=== PATIENT | female | born 1960 | race Caucasian/White ===

== ENCOUNTER 2022-12-26 08:00 | Outpatient (RCR) | payer OTHER, SELFPAY ==
--- NOTE | 2022-11-14 14:57 | PTOPEVAL1 ---
Assessment and note entered by Estrella Pederson, PT Evaluation Information Assessment Status Evaluation Diagnosis bilateral carpal tunnel Onset couple months Subjective Information Had this years ago, wore wrist guards and would go away. Reports recently wakes up w/ her hands being numb. Would have flare ups, would wear her wrist guards and would go away. Woke up with nerve pain up left arm that was worsening, went to ER to r/o heart attack Passed out when got to ER. Got a gabapentin, prednisone x 5 days. Has worn wrist brace 06/05 since episode. Left hand is keyboard hand and right is wrist hand . Ordered ergonomic gel and this seems to have helped. 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 Reported Pain Level Pain Score 0,0: Self Report Assessment PT Clinical Summary Pt presents w/ hx of bilat carpal tunnel symptoms over multiple years. Reports will have flare ups which resolve with wearing her braces a few weeks. Has had more frequent flare ups in recent years and most recently had such a severe flare up on left arm the went to the ER. Demo's decreased AROM of wrist/elbow with increased soft tissue density /adhesions and tone at rest. Pt will benefit from therapy to address deficits, reduce pain, and improve ADLs to return to PLOF. Plan of Care Interventions Electrical Stimulation,Hot Pack/Cold Pack,Manual Therapy,Paraffin Bath,Therapeutic Activities, Therapeutic Exercise,Ultrasound,Other Other Interventions Taping PT Services Indicated Yes Treatment Frequency and 1-2x weekly x 6 weeks Duration These treatments will address the objective and functional deficits as defined above. The patient will be advanced safely and appropriately in order for the patient to progress towards his/her prior level of function. Additional exercises will be introduced and as well as a comprehensive home exercise program upon discharge, if needed, ?to ensure carryover of functional gains achieved in the clinic. This treatment plan has been reviewed and agreement upon by the patient.
--- NOTE | 2022-12-26 08:55 | PTOPDC ---
Assessment and note entered by Estrella Pederson, PT Assessment Status Discharge Diagnosis bilateral carpal tunnel Onset couple months Subjective Information Hasn't had to wear braces during the day. Has still been wearing brace on left hand at night. Tried to go without braces last two nights but woke up with tingling in fingers. Is a little achy today. Feels ~75% improved. Reports is worried that prior episode didn't have any day time symptoms just woke up with extreme pain. 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 Has modified this to minimize discomfort. Reported Pain Level Pain Score 0,0: Self Report Assessment PT Clinical Summary Pt reports feeling ~ 75% improved overall. Is still wearing her left brace at night, but does not have to wear bracing on either wrist during the day or at work. Highest level of discomfort in left wrist rated at 3/10 and with right wrist at 1/10 both of which are not frequent. Pt has up to date home program to maintain ROM and flexibility, has been educated on progression independently as well. Pt is pleased with her progress, has met most of her goals set by therapist. Thus patient is being discharged from therapy services.
== END 2022-12-26 09:44 | disposition home or self-care (01) ==
LOC: ANHHIPT 08:00
PROVIDERS: PCP Family Medicine; Visit Provider Family Medicine
DX: G56.03 Carpal tunnel syndrome, bilateral upper limbs (principal)
CPT/HCPCS: 97014; 97035; 97110; 97140; 97161; G0283

== ENCOUNTER 2024-05-04 15:00 | Outpatient (RCR) | payer MEDICARE, OTHER, SELFPAY ==
--- NOTE | 2024-03-24 14:02 | PTOPPROG ---
Assessment and note entered by Estrella Pederson, PT Evaluation Information Assessment Status Progress Diagnosis falls, weakness Subjective Information Perceived improvement: Pt feels a lot stronger than I was , not a great day today but was very active this weekend with recent festival. States did well walking the festival. On the further walk had to watch her walking and was by herself. Had a lot of uneven areas but did fine with this. Is better able to bend over and feed cats. Is still cautious with stairs and uses the rail. Assessment PT Clinical Summary Pt has attended therapy consistently for abnormalities of gait, having had multiple falls in the last year. She reports feeling improved since initiating therapy, notes is able to walk further without assist, is now able to bend over and feed animals without fear. She demo's improved hip strength and core strength, improved static balance with smaller base of support. Pt demo's decreased ankle stability and strength today, added ankle strengthening activities. Pt cont to demo difficulty with balance activities and weakness thus will benefit from physical therapy in order to continue improvement and meet her goals Plan of Care Interventions Gait Training,Neuro Re-education,Patient/Caregiver Educati,Therapeutic Activities,Therapeutic Exercise,Self-Care/Home Management PT Services Indicated Yes Treatment Frequency and Cont 1-2x weekly x 10 visits Duration These treatments will address the objective and functional deficits as defined above. The patient will be advanced safely and appropriately in order for the patient to progress towards his/her prior level of function. Additional exercises will be introduced and as well as a comprehensive home exercise program upon discharge, if needed, ?to ensure carryover of functional gains achieved in the clinic. This treatment plan has been reviewed and agreement upon by the patient.
--- NOTE | 2024-05-06 16:30 | PTOPDC ---
Assessment and note entered by Estrella Pederson, PT Evaluation Information Assessment Status Discharge Diagnosis falls, weakness Subjective Information 05/04/24 Pt reports stopped taking medications last week. Reports the longer has been without it feeling better. States feeling less issues with balance and fatigue. States still has LLE issues but is more than just muscle soreness. Pt reports going up and down the stairs at least once or twice a day. There are some days is really tired, feels heaviness in legs going up steps but is better. No longer modifying activities, is able to walk around [employer] without issues now. weird left leg thing . Has identified if sitting in hard back chair or is too soft will get low back pain and pain into left leg. Has not had hip x-ray or blow back since last year. Pt reports her greatest fear was being unable to get up from a ground fall without using UEs Assessment PT Clinical Summary Pt discharge testing performed. She reports greater confidence with mobility and walking without support, and feels more confident in her ability to get up from the ground without UE assist. She reports overall she feels improved since stopping certain medications, but continues to report LLE symptoms of weakness. Lumbar screening shows no effect on LLE sensations. Her overall strength in LEs appears to have plateaued but is equal aliza, neuro screening shows (-) clonus , (-) hyperreflexia, but pt demo's restlessness with aliza LEs and ankles, as well as hands and UEs. Pt also cont to demo significant balance deficits in static standing with small base of support and especially with eyes closed even though her inner ear testing was negative. Pt appears to have met max benefit for PT at this time. Thus she is being discharged from services with her home program, and knowledge of progressing her own fitness routine. Plan of Care PT Services Indicated No
== END 2024-05-08 14:54 | disposition home or self-care (01) ==
LOC: ANHHIPT 15:00
PROVIDERS: PCP Family Medicine; Visit Provider Family Medicine
DX: M25.351 Other instability, right hip (principal); M25.352 Other instability, left hip; M54.50 Low back pain, unspecified; R53.1 Weakness; G89.29 Other chronic pain
CPT/HCPCS: 97110; 97112; 97116; 97162; 97530; 97750

== ENCOUNTER 2024-08-11 09:43 | Outpatient (CLI) | payer MEDICARE, SELFPAY ==
--- NOTE | ~2024-08-11 | MR_ITS ---
EXAMINATION: MR lumbar spine wo con DATE: 08/11/2024 10:17 INDICATION: Low back pain. Lumbar radiculopathy. TECHNIQUE: Magnetic resonance imaging (MRI) of the lumbar spine was performed without intravenous con trast. Sequences included sagittal T2-weighted FSE, sagittal T2-weighted FS FSE, sagittal T1-weighted FSE, and axial T2-weighted FSE. COMPARISON: Lumbar spine radiographs 07/20/2024 FINDINGS: Alignment is normal. There is mild chronic anterior wedging of T10-T12 vertebral bodies. Th ere are Schmorl's nodes at multiple levels. Intervertebral disc heights are normal. The distal spinal cord signal intensity is normal. The conus medullaris is at L1. The following disc levels are specif ically discussed: L1-L2: The disc does not extend beyond the endplate margin. There is mild bilateral facet joint osteo arthritis. There is no neural foraminal stenosis. There is no central canal stenosis. L2-L3: The disc does not extend beyond the endplate margin. There is mild bilateral facet joint osteo arthritis. There is no neural foraminal stenosis. There is no central canal stenosis. L3-L4: The disc is bulging. There is severe bilateral facet joint osteoarthritis. There is mild bilat eral neural foraminal stenosis. There is mild central canal stenosis. L4-L5: The disc is bulging and has an annular fissure. There is severe bilateral facet joint osteoart hritis. There is mild bilateral neural foraminal stenosis. There is mild central canal stenosis. L5-S1: The disc does not extend beyond the endplate margin. There is mild right and moderate left fac et joint osteoarthritis. There is no neural foraminal stenosis. There is no central canal stenosis. IMPRESSION: 1. Mild lumbar spondylosis. Reviewed, dictated and finalized at location B. IMPRESSION: 1. Mild lumbar spondylosis.
== END 2024-08-11 09:44 | disposition home or self-care (01) ==
LOC: GOSHIMG 09:44
PROVIDERS: PCP Physician Assistant Medical; Visit Provider Physician Assistant Medical
DX: M47.26 Other spondylosis with radiculopathy, lumbar region (principal)
CPT/HCPCS: 72148

== ENCOUNTER 2024-12-11 15:30 | Outpatient (RCR) | payer MEDICARE, SELFPAY ==
--- NOTE | 2024-09-18 18:34 | PTOPEVAL1 ---
Assessment and note entered by India Monet, PT Evaluation Information Assessment Status Evaluation Diagnosis M54.16 ICD-10 Condition Codes (PT) Pain in low back M54.50,M54.16,M54.18,Pain in left hip M25.552,Pain in left knee M25.562,Repeated falls R29.6,Difficulty Walking R26.2,R26.9 Onset 08/27/2024 Subjective Information Pt c/o worsening pain in the lowback, sometimes across the small of the back, and sometimes goes down to the buttocks, sometimes LLE feels unstable and feels like it is going to give out one me mainly on the L side; does not feel anything on the RLE. Reports has had repeated falls in the last 2 yrs due to LOB, with tendency to lean over too far forward. She has many cats at home, and taking care of them is getting increasingly challenging due to difficulty with bending down or squatting. Works mainly sitting at her desk, but recently, Standing/sitting in one position for prolonged time increases the pain. Takes Aleve daily for pain. States difficulty with sleeping on the L side or flat on the back, finds lying on the R side a little better. Reported Pain Level Pain Score 2,0: Self Report Assessment PT Clinical Summary Pt is a 64 yo female who presents to therapy with c/o worsening pain to lowerback radiating down to L hips and LEs. Demos antalgic gait pattern, scored 34% on EMIL (Oswestry Disability Index) for LBP indicating moderate disability, significant ROM and strength deficits, balance impairments which results to recent h/o multiple falls, endurance and gait impairments impacting performance of ADLs and IADLs. Pt will benefit from skilled PT interventions to manage pain and radiculopathy symptoms, improve mobility, core and BLE strength and stability and improve balance and gait to reduce risk for falls and improve QOL. Plan of Care Interventions Electrical Stimulation,Gait Training,Hot Pack/Cold Pack,Manual Therapy,Mechanical Traction,Neuro Re- education,Patient/Caregiver Education,Therapeutic Activities,Therapeutic Exercise,Ultrasound,Other Other Interventions IASTM, Taping PT Services Indicated Yes Treatment Frequency and 2x/wk x 16 visits Duration These treatments will address the objective and functional deficits as defined above. The patient will be advanced safely and appropriately in order for the patient to progress towards his/her prior level of function. Additional exercises will be introduced and as well as a comprehensive home exercise program upon discharge, if needed, ?to ensure carryover of functional gains achieved in the clinic. This treatment plan has been reviewed and agreement upon by the patient.
--- NOTE | 2024-09-18 18:35 | OPREHPOC ---
Outpatient Therapy Plan of Care This is a Multidisciplinary Plan of Care that may contain components documented by all disciplines (PT, OT, and ST.) PT Problem 1 PT Problem #1 Knowledge Deficit PT Goal 1 Goal / Goal Update Pt will perform HEPs to improve flexibility and strength indep. Target Visit 10 PT Problem 2 PT Problem #2 Pain PT Goal 1 Goal / Goal Update Pt will report 2-3/10 pain at worst and during provocative activities of walking and prolonged standing/sitting positions. Target Visit 12 PT Problem 3 PT Problem #3 Impaired Balance PT Goal 1 Goal / Goal Update 1. Pt will demo 5xSTS without BUE support x 15 seconds or less indicating improved BLE strength and overall balance. 2. Pt will demo Tinetti Score of 24/28 or more to reduce risk for falls. Target Visit 16 PT Problem 4 PT Problem #4 Impaired Range of Motion PT Goal 1 Goal / Goal Update Pt will demo WNL active lumbar ROM without pain and discomfort/sensation of tightness. Target Visit 16 PT Problem 5 PT Problem #5 Impaired Gait PT Goal 1 Goal / Goal Update Pt will demo improved indep gait pattern without postural sway on various surfaces and stairs. Target Visit 10
--- NOTE | 2024-11-04 19:03 | PTOPPROG ---
Assessment and note entered by India Monet, PT Progress Information Assessment Status Progress Diagnosis M54.16 ICD-10 Condition Codes (PT) Pain in low back M54.50,Radiculopathy, lumbar region M54.16,Radiculopathy, sacral and sacrococcygeal region M54.18,Pain in left hip M25. 552,Pain in left knee M25.562,Repeated falls R29.6 ,Difficulty Walking R26.2,Abnormalities of gait and mobility R26.9 Onset 08/27/2024 Subjective Information Pt reports continue to feel stiffness in the morning however, she feels that the stretches has been helping. Sitting for > 30 min increases stiffness. States she feels pain is not going down to legs now compared to last time. Reports taking less of the Aleve recently, does not hurt as bad as it used to. Assessment PT Clinical Summary Pt demos good progress with therapy, presents with improved ROM and strength, continue to c/o weakness and instability with continued discomfort although infrequently lately to her lower back and BLEs. Continued skilled Pt interventions necessary to further improve standing balance and stability as well as to increase activity tolerance to reduce risk for falls and improve general functional mobility. Plan of Care Interventions Electrical Stimulation,Gait Training,Hot Pack/Cold Pack,Manual Therapy,Mechanical Traction,Neuro Re- education,Patient/Caregiver Education,Therapeutic Activities,Therapeutic Exercise,Ultrasound,Other Other Interventions IASTM, Taping PT Services Indicated Yes Treatment Frequency and 2x/wk x 16 visits Duration These treatments will address the objective and functional deficits as defined above. The patient will be advanced safely and appropriately in order for the patient to progress towards his/her prior level of function. Additional exercises will be introduced and as well as a comprehensive home exercise program upon discharge, if needed, ?to ensure carryover of functional gains achieved in the clinic. This treatment plan has been reviewed and agreement upon by the patient.
--- NOTE | 2024-11-30 13:09 | PCPTNOTE ---
Department called & cancelled scheduled appointment this date due to staff illness, unable to see patient for her scheduled appointment
--- NOTE | 2024-12-14 11:31 | PTOPDC ---
Assessment and note entered by India Monet, PT Discharge Information Assessment Status Discharge Diagnosis M54.16 ICD-10 Condition Codes (PT) Pain in low back M54.50,Radiculopathy, lumbar region M54.16,Radiculopathy, sacral and sacrococcygeal region M54.18,Pain in left hip M25. 552,Pain in left knee M25.562,Repeated falls R29.6 ,Difficulty Walking R26.2,Abnormalities of gait and mobility R26.9 Onset 08/27/2024 Subjective Information Pt reports she is having some stiffness last night but overall, the stretches and the TENS has helped a lot with managing pain levels and states she does not feel as unstable as she did. Assessment PT Clinical Summary Pt received a total of 21 treatment sessions and demos excellent progress with therapy. She also received a portable TENS-EMS unit for home use to manage pain and continue to work on strengthening. Pt demos significant improvement in her Modified Oswestry Low Back Scale which indicate minimal limitation to functional mobility, reports significant reduction in pain levels and improved stability as indicated by the 5xSTS and Tinetti Balance and Gait scores. She reports compliance with HEPs and accurate application of TENS unit, she is agreeable to DC today. Skilled PT intervention discontinued. Plan of Care PT Services Indicated No
== END 2024-12-14 11:44 | disposition home or self-care (01) ==
LOC: ANHHIPT 15:30
PROVIDERS: PCP Physician Assistant Medical
DX: M54.16 Radiculopathy, lumbar region (principal)
CPT/HCPCS: 97012; 97014; 97035; 97110; 97112; 97116; 97140; 97161; 97530; 97750; G0283

== ENCOUNTER 2025-09-07 09:50 | Outpatient (CLI) | payer MEDICARE, SELFPAY ==
--- OUTSIDE RECORDS SUMMARY | 2025-09-07 10:47 | XMS_ITS | Clinical Summary ---
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 11/23/2023 Active Active Problems Problem Noted Date Diagnosed Date Varicose veins of bilateral lower extremities wi th pain 08/09/2024 Neuropathy 08/14/2021 High blood pressure 10/14/2019 Edema 10/14/2016 Immunizations Immunization Administration Dates Next Due Influenza Adult (Generic) 07/27/2023,05/2022,07/14/2021,07/27/2017,2015 Family History Medical History Relation Comments Breast Cancer Maternal Aunt 50's Breast Cancer Maternal Grandmother 30's Relation Status Comments Maternal Aunt Maternal Grandmother Social History Tobacco Use Types Packs/Day Years Used Date Smoking Tobacco: Never Smokeless Tobacco: Never Tobacco Cessation:Counseling Given: No Alcohol Use Standard Drinks/Week Comments Yes 0 (1 standard drink = 0.6 oz pur e alcohol) rarely PHQ-2 Answer Date Recorded Patient Health Questionnaire-2 Score 0 01/10/2024 Comments Unknown Sex and Gender Information Value Date Recorded Sex Assigned at Female 04/02/2024 10:01 AM CDT Legal Sex Female 7:41 PM CDT Gender Identity Female 04/02/2024 10:01 AM CDT Sexual Orientation Straight 04/02/2024 10 :01 AM CDT Last Filed Vital Signs Vital Sign Reading Time Taken Comments Blood Pressure 122/74 08/05/2024 9:28 AM CDT Pulse 98 08/05/2024 9:28 AM CDT Temperature 37.1 C (98.8 F) 01/10/2024 3:46 PM CDT Respiratory Rate 18 01/10/2024 3:46 PM CDT Oxygen Saturation 98% 01/10/2024 3:46 PM CDT Inhaled Oxygen Concentration - - Weight 110.2 kg (243 lb) 08/05/2024 9:28 AM CDT Height 165.1 cm (5' 5) 08/05/2024 9:28 AM CDT Body Mass Index 40.44 08/05/2024 9:28 AM CDT Plan of Treatment Health Maintenance Due Date Last Done Comments Colorectal Cancer Screening Colonoscopy (10 Years) 1959 Hepatitis C 1977 DTaP, Tdap and Td Vaccines (1 - Tdap) 1978 Pneumococcal Vaccine: 50+ Years (1 of 1 - PCV) 2009 Zoster Vaccines (1 of 2) 2009 RSV Immunization or 60+ Years (1 - Risk 60-74 years 1-dose series) 2019 Annual Medicare Wellness Visit 2024 PHQ-2 (Physician [facility]) 10/14/2024 01/10/2024 COVID-19 Vaccine ( season) 2025 09/02/2021, 01/18/2021, 12/21/2020 Influenza Adult (#1) 2025 08/05/2024, 07/27/2023, 07/21/2022, Additional history exists Mammogram Screening 04/13/2027 04/13/2025, 04/09/2024, 01/10/2023, Additional history exists Dexa Scan (General) Completed 04/13/2025, 01/10/2023, 11/24/2010 Hepatitis A Vaccines Aged Out No long er eligible based on patient's age to complete this topic Meningococcal B Vaccine Aged Out No l onger eligible based on patient's age to complete this topic Meningococcal Vaccine Aged Out No hector soham eligible based on patient's age to complete this topic RSV Immunizations Under 20 Months Aged Out No longer eligible based on patient's age to complete this topic Procedures Procedure Name Priority Date/Time Associated Diagnosis Comments BONE DENSITY/DEXA Routine 04/13/2025 2:2 5 PM CDT Other primary ovarian failure MG SCREENING W JOSE RUTHIE DIGI Routine 04/13/2025 2:24 PM CDT Encounter for screening mammogram for malignant neoplasm of breast from Last 3 Months or Most Recently Relevant to Health Maintenance Results * BONE DENSITY/DEXA (04/13/2025 2:25 PM CDT) Anatomical Region Laterality Modality Bone Bone Density 04/14/2025 7:05 PM CDT Impressions 04/14/2025 7:10 PM CDT Impression: The bone mineral density is within normal limits. Ordered By: RASHEEDA AWAD Interpreted By: Ehsan Le DO, 04/14/2025 7:05 PM Narrative 04/14/2025 7:10 PM CDT [place] [id number] [facility] [place] [address] Examination: DEXA Bone densitometry Clinical history: Postmenopausal. Osteoporosis screening. Technique: DEXA bone mineral density evaluation was performed in the AP projection over the lumbar spine and over both hips in the AP projection utilizing standard imaging techniques. COMPARISON: None. Assessment: The BMD measured at the AP spine L1-L4 is 1.200 g/cm2 with a T-score of 1.4 and a Z-Score of 3.2. The BMD of the total left femur is 1.109 g/cm2, the femoral neck measures 0.843 g/cm2, with a T-score of -0.1 and a Z-Score of 1.5. The BMD of the total right femur is 1.055 g/cm2, the femoral neck measures 0.873 g/cm2, with a T-score of 0.2 and a Z-Score of 1.8. Based upon the above measurements, the patient has normal bone mineral density. FRAX is not reported as the bone mineral density values fall within normal limits. Based on these results, a followup exam is recommended in 3-5 years or sooner if clinically indicated. Procedure Note Ehsan Le DO - 04/14/2025 [facility] [address] [place] [address] Examination: DEXA Bone densitometry Clinical history: Postmenopausal. Osteoporosis screening. Technique: DEXA bone mineral density evaluation was performed in the APprojection over the lumbar spine and over both hips in the AP projectionutilizing standard imaging techniques. COMPARISON: None. Assessment: The BMD measured at the AP spine L1-L4 is 1.200 g/cm2 with a T-score of1.4 and a Z-Score of 3.2. The BMD of the total left femur is 1.109 g/cm2, the femoral neck measures0.843 g/cm2, with a T-score of -0.1 and a Z-Score of 1.5. The BMD of the total right femur is 1.055 g/cm2, the femoral neck measures0.873 g/cm2, with a T-score of 0.2 and a Z-Score of 1.8. Based upon the above measurements, the patient has normal bone mineraldensity. FRAX is not reported as the bone mineral density values fall within normallimits. Based on these results, a followup exam is recommended in 3-5 years orsooner if clinically indicated. Impression: The bone mineral density is within normal limits. Ordered By: RASHEEDA AWAD Interpreted By: Ehsan Le DO, 04/14/2025 7:05 PM us Rasheeda BOYLE DEXA Final Result * MG SCREENING W JOSE RUTHIE DIGI (04/13/2025 2:24 PM CDT) Anatomical Region Laterality Modality Breast Bilateral Mammography 04/14/2025 6:07 PM CDT Impressions 04/14/2025 6:10 PM CDT ===== IMPRESSION: ===== 1. Stable mammographic appearance with no new findings to suggest malignancy in either breast. Assessment: ACR BI-RADS 2 - BENIGN FINDING(S) Recommendation: 1:Routine Screening Bilateral Comments: Ordered By: RASHEEDA AWAD Interpreted By: Tyler Hannah, 04/14/2025 6:07 PM Narrative 04/14/2025 6:10 PM CDT [facility] [id number] [address] EXAMINATION: Digital bilateral screening mammogram with 3-D tomosynthesis EXAM DATE/TIME: 04/13/2025 1:54 PM REASON FOR EXAM: routine Breast carcinoma in maternal grandmother in her 30s. Maternal aunt in her 50s. COMPARISON: 01/10/2023. 04/09/2024 Technique: Digital screening mammography of both breasts was performed in addition to 3-D Tomosynthesis technique. This study was read with the assistance of a computer-aided detection system. Tissue density: There are scattered areas of fibroglandular density. Findings: There is no new focal asymmetry, dominant mass lesion, area of skin thickening, or cluster of suspicious appearing calcifications in either breast to suggest malignancy. Rasheeda BOYLE MAMMO Final Result from Last 3 Months or Most Recently Relevant to Health Maintenance Insurance [employer] MED[employer] Care Teams Ceramic Mold Designer Relationship Specialty Start Date End Date Rasheeda Awad PA [address] [place] [address] [phone] PCP - General PHYSICIAN SIGNAL OPERATOR LINGUIST 05/14/24
--- NOTE | 2025-09-07 11:30 | NEURO_ITS ---
Impression: # Complains of nocturnal paresthesia and painful hands. Non- diabetic. ? # Bilateral Carpal Tunnel Syndrome, right more than left. ? # Abnormal needle/EMG exam. ?Nerve Conduction Studies ?Stim Site NR Peak (ms) P-T Amp (?V) Site1 Site2 Delta-P (ms) Dist (cm) Chandler (m/s) Left Median Anti Sensory (2-3nd Digit) Wrist ? 4.4 22.7 Wrist 2-3nd Digit 4.4 14.0 32 Wrist ? 4.0 101.3 Wrist 2-3nd Digit 4.4 14.0 32 Right Median Anti Sensory (2-3nd Digit) Wrist ? 6.4 37.4 Wrist 2-3nd Digit 6.4 14.0 22 Wrist ? 5.6 24.1 Wrist 2-3nd Digit 6.4 14.0 22 Left Radial Anti Sensory (Base 1st Digit) Wrist ? 1.7 35.9 Wrist Base 1st Digit 1.7 0.0 Right Radial Anti Sensory (Base 1st Digit) Wrist ? 2.4 25.4 Wrist Base 1st Digit 2.4 0.0 Left Ulnar Anti Sensory (5th Digit) Wrist ? 2.3 31.9 Wrist 5th Digit 2.3 14.0 61 Right Ulnar Anti Sensory (5th Digit) Wrist ? 2.4 22.3 Wrist 5th Digit 2.4 14.0 58 ?Stim Site NR Onset (ms) O-P Amp (mV) Site1 Site2 Delta-0 (ms) Dist (cm) Chandler (m/s) Left Median Motor (Abd Poll Brev) Wrist ? 4.4 2.4 Elbow Wrist 4.2 26.0 62 Elbow ? 8.6 1.2 Right Median Motor (Abd Poll Brev) Wrist ? 4.8 3.1 Elbow Wrist 3.4 20.0 59 Elbow ? 8.2 3.1 Left Ulnar Motor (Abd Dig Minimi) Wrist ? 3.0 4.5 A Elbow Wrist 4.7 28.0 60 A Elbow ? 7.7 3.8 B Elbow Wrist 3.4 20.0 59 B Elbow ? 6.4 4.0 Right Ulnar Motor (Abd Dig Minimi) Wrist ? 2.4 4.0 A Elbow Wrist 4.4 26.0 59 A Elbow ? 6.8 4.2 B Elbow Wrist 3.3 19.0 58 B Elbow ? 5.7 4.3 F Wave Studies ?NR F-Lat (ms) L-R F-Lat (ms) Left Median (Mrkrs) (Abd Poll Brev) ? 29.30 1.81 Right Median (Mrkrs) (Abd Poll Brev) ? 27.49 1.81 Left Ulnar (Mrkrs) (Abd Dig Min) ? 27.52 0.88 Right Ulnar (Mrkrs) (Abd Dig Min) ? 26.65 0.88 Electromyography ?Side Muscle Nerve Root Ins Act Fibs Amp Dur Recrt Comment Right 1stDorInt Ulnar C8-T1 Nml Nml Nml Nml Nml Right Ext Indicis Radial (Post Int) C7-8 Nml Nml Nml Nml Nml Right Ext Digitorum Radial (Post Int) C7-8 Nml Nml Nml Nml Nml Right BrachioRad Radial C5-6 Nml Nml Nml Nml Nml Right PronatorTeres Median C6-7 Nml Nml Nml Nml Nml Right Abd Poll Brev Median C8-T1 Nml Nml Nml >12ms +2 Right ABD Dig Min Ulnar C8-T1 Nml Nml Nml Nml Nml Right FlexPolLong Median (Ant Int) C7-8 Nml Nml Nml Nml Nml Right Abd Poll Long Radial (Post Int) C7-8 Nml Nml Nml Nml Nml Left 1stDorInt Ulnar C8-T1 Nml Nml Nml Nml Nml Left Ext Indicis Radial (Post Int) C7-8 Nml Nml Nml Nml Nml Left Ext Digitorum Radial (Post Int) C7-8 Nml Nml Nml Nml Nml Left BrachioRad Radial C5-6 Nml Nml Nml Nml Nml Left PronatorTeres Median C6-7 Nml Nml Nml Nml Nml Left Abd Poll Brev Median C8-T1 Nml Nml Nml >12ms +2 Left ABD Dig Min Ulnar C8-T1 Nml Nml Nml Nml Nml Left FlexPolLong Median (Ant Int) C7-8 Nml Nml Nml Nml Nml Left Abd Poll Long Radial (Post Int) C7-8 Nml Nml Nml Nml Nml
== END 2025-09-07 09:51 | disposition home or self-care (01) ==
LOC: ANHNEURO 09:50
PROVIDERS: PCP Physician Assistant Medical; Visit Provider Physician Assistant Medical
DX: G56.03 Carpal tunnel syndrome, bilateral upper limbs (principal)
CPT/HCPCS: 95886; 95911

== ENCOUNTER 2025-09-08 10:30 | Outpatient (RCR) | payer MEDICARE, SELFPAY ==
--- NOTE | 2025-07-07 11:16 | PTOPEVAL1 ---
Assessment and note entered by Estrella Pederson, PT Evaluation Information Assessment Status Evaluation ICD-10 Condition Codes (PT) Pain in left knee M25.562 Subjective Information Pt reports has been trying to squat more to put cat food down, and uses stairs. What sent her to the doctor was that when she would try to turn over in bed would hurt, could not rest left leg on top of right. Reports walked a lot more than normal trying to find her cat, one day was 21,000 steps trying to get out and find her cat. Feels like left knee is unstable as well, feels it moving around no event, just progressively worsened. Had been doing her stretches and marches daily and thinks maybe was over zealous. Noticed was having difficulty lifting leg to put her pants on couldn't lift left knee high enough. Over the counter Aleve for back pain, no longer taking Meloxicam. Stretches for her back keep it doing well. Used the Voltaren gel once and it helped. Aggravating factors: knee being too straight Reported Pain Level Pain Score 1: Self Report Assessment PT Clinical Summary Pt presents with c/o L knee pain without traumatic event. Imaging shows tricompartmental arthritis, with special testing also suggestive of meniscal involvement. Pt demonstrates abnormal gait pattern , decreased ROM, and decreased strength and flexibility of multiple associated muscle groups. Pt will benefit from PT to decrease inflammation, decrease pain, and address deficits in attempts to return to PLOF. Should therapy be ineffective, pt will likely need referral to Ortho. Plan of Care Interventions Electrical Stimulation,Gait Training,Hot Pack/Cold Pack,Manual Therapy,Neuro Re-education,Patient/ Caregiver Education,Therapeutic Activities, Therapeutic Exercise,Self-Care/Home Management, Ultrasound,Other Other Interventions Taping, Bracing PT Services Indicated Yes Treatment Frequency and 2x weekly 10 visits Duration These treatments will address the objective and functional deficits as defined above. The patient will be advanced safely and appropriately in order for the patient to progress towards his/her prior level of function. Additional exercises will be introduced and as well as a comprehensive home exercise program upon discharge, if needed, ?to ensure carryover of functional gains achieved in the clinic. This treatment plan has been reviewed and agreement upon by the patient.
--- NOTE | 2025-07-07 11:16 | OPREHPOC ---
Outpatient Therapy Plan of Care This is a Multidisciplinary Plan of Care that may contain components documented by all disciplines (PT, OT, and ST.) PT Problem 1 PT Problem #1 Knowledge Deficit PT Goal 1 Goal / Goal Update Pt will be independent in HEP Pt will verbalize understanding of diagnosis and prognosis Target Visit 10 PT Problem 2 PT Problem #2 Pain PT Goal 1 Goal / Goal Update Pt will report lowest pain rating at 0/10 to show improvement in overall discomfort Target Visit 10 PT Goal 2 Goal / Goal Update Pt will report greatest pain level at 3/10 or less to improve ADLs and activities Target Visit 20 PT Problem 3 PT Problem #3 Impaired Range of Motion PT Goal 1 Goal / Goal Update Pt will demonstrate passive ROM of 0-120 L knee for functional use of LLE Target Visit 10 PT Problem 4 PT Problem #4 Impaired Gait PT Goal 1 Goal / Goal Update Pt will demonstrate equal stance time R to L LE during gait Target Visit 10 PT Goal 2 Goal / Goal Update Pt will show normalized gait pattern with appropriate knee extension and apple Target Visit 20
--- NOTE | 2025-08-04 11:30 | PTOPPROG ---
Assessment and note entered by Estrella Pederson, PT Evaluation Information Assessment Status Progress ICD-10 Condition Codes (PT) Pain in left knee M25.562 Subjective Information Reports had cut back some of her walking looking for her cat. States still walked 6000 steps on her property and rearranged her wild-life cameras but knee felt unstable and became painful. Hasn't been going down steps every day but today was able to go down the steps, but the coming back up the steps legs feel heavy but no pain in the knee. States this weekend the outside toes were somewhat tingly and numb. But also has hammer toes on that foot. Notes does have tingling in multiple areas as well, hx of carpal tunnel. Laying on her left has right leg not on left leg, laying on right side left leg doesn't like the angle. Has tried a pillow but did not help. Pt reports doesn't hurt as much as it did. Doesn't hurt all night long, and couldn't lay the leg down flat but most of the time can do this now. Reports instances of 10/10 pain is less often, takes Aleve and this helps. But now is taking 2 daily instead of one. Feels 50% improved, hesitates sometimes for fear of further injury and sometimes gets twinges Assessment PT Clinical Summary Pt has attended 10 sessions of physical therapy for her left knee pain. Though she continues to have high levels of pain at times, she does report this is less often. She is still able to walk thousands of steps a day outside on uneven surfaces while looking for her cat, though she does not increased pain and feeling of instability with this. She is showing slight increases in strength, improved ROM, and improving gait but has yet to meet all her goals for therapy. Thus will benefit from continued therapy to progress toward her overall goals and reduce discomfort. Plan of Care Interventions Electrical Stimulation,Gait Training,Hot Pack/Cold Pack,Manual Therapy,Neuro Re-education,Patient/ Caregiver Education,Therapeutic Activities, Therapeutic Exercise,Self-Care/Home Management, Ultrasound,Other Other Interventions Taping, Bracing PT Services Indicated Yes Treatment Frequency and 1-2x weekly x 10 visits Duration These treatments will address the objective and functional deficits as defined above. The patient will be advanced safely and appropriately in order for the patient to progress towards his/her prior level of function. Additional exercises will be introduced and as well as a comprehensive home exercise program upon discharge, if needed, ?to ensure carryover of functional gains achieved in the clinic. This treatment plan has been reviewed and agreement upon by the patient.
--- NOTE | 2025-09-10 08:59 | PTOPDC ---
Assessment and note entered by Estrella Pederson, PT Evaluation Information Assessment Status Discharge ICD-10 Condition Codes (PT) Pain in left knee M25.562 Subjective Information Pt reports legs feeling heavy is better a lot of days. Still walking about 6000 steps a day. Still taking Aleve once in the am and pm. If not taking in the evening, will wake up with pain. Today feels stiff, has arthritis and everything hurts but the knee more so than the other areas. Improvement: somedays feels 80-90%, but other days is bad. States feels is improving but slowly Being more mindful of her activities, and is doing more icing of her knee proactively Reported Pain Level Pain Score 2: Self Report Assessment PT Clinical Summary Pt has attended therapy consistently for left knee pain for 20 visits. While she feels improved, and continues to walk around 6000 steps a day outside , she continues to have times of severe pain, and today cont to demonstrate significant tenderness multiple areas of the left knee medial joint line especially. She also shows ligament laxity of multiple ligaments in the knee. Though special testing does not support meniscus damage, symptoms are highly suggestive of this. Her strength has not changed since her last reevaluation, and her range and flexibility appear to be declining. She also continues to have increased pain and stiffness upon standing effecting her gait. Pt appears to have met max benefit from physical therapy at this time and would likely benefit from imaging and referral to ortho specialist for further evaluation. Plan of Care PT Services Indicated No
== END 2025-09-10 09:20 | disposition home or self-care (01) ==
LOC: ANHHIPT 10:30
PROVIDERS: PCP Physician Assistant Medical; Visit Provider Physician Assistant Medical
DX: M25.562 Pain in left knee (principal)
CPT/HCPCS: 97014; 97035; 97110; 97162; 97530; 97750; G0283